=== PATIENT | male | born 1990 | race African-American/Black ===

== ENCOUNTER 2016-11-10 17:40 | Emergency (ER) | payer SELFPAY ==
[~2016-11-10] VITALS: Ht 175.3 cm; Wt 59.0 kg
[2016-11-10 17:47] VITALS: BP 113/80
== END 2016-11-10 21:17 | disposition home or self-care (01) ==
LOC: ER 17:47
DX: J40 Bronchitis, not specified as acute or chronic (principal)

== ENCOUNTER 2017-08-06 11:35 | Emergency (ER) | payer MEDICAID ==
[~2017-08-06] VITALS: Ht 175.3 cm; Wt 59.0 kg
[2017-08-06 12:11] VITALS: BP 114/69
== END 2017-08-06 12:45 | disposition home or self-care (01) ==
LOC: ER 11:35
DX: R51 Headache (principal); V43.62XA Car passenger injured in collision with other type car in traffic accident, initial encounter; Y93.89 Activity, other specified; Y92.89 Other specified places as the place of occurrence of the external cause; Y99.8 Other external cause status
CPT/HCPCS: 70450

== ENCOUNTER 2018-05-13 03:06 | Emergency (ER) | payer MEDICAID ==
[~2018-05-13] VITALS: Ht 188 cm; Wt 74.8 kg
[2018-05-13 03:15] VITALS: BP 156/90
== END 2018-05-13 05:34 | disposition left against medical advice (07) ==
LOC: EDUNIT# 03:06 → EDBD 03:06 → ER 03:15
DX: R51 Headache (principal); Z53.21 Procedure and treatment not carried out due to patient leaving prior to being seen by health care provider

== ENCOUNTER → 2018-05-13 | Emergency (ER) | payer MEDICAID | END | disposition left against medical advice (07) | LOC: ER 01:45 | DX: R51 Headache (principal); Z53.21 Procedure and treatment not carried out due to patient leaving prior to being seen by health care provider ==